=== PATIENT | female | born 1995 | race Caucasian/White ===

== ENCOUNTER 2018-06-22 01:14 | Emergency (ER) | payer OTHER ==
[2018-06-22 01:25] VITALS: TEMP 98.2
[2018-06-22 02:39] VITALS: RESP 16
[2018-06-22 03:05] VITALS: BP 94/64; PULSE 84; O2SAT 99
== END 2018-06-22 03:10 | disposition home or self-care (01) | DRG 552 ==
LOC: ED 01:14
DX: M54.9 Dorsalgia, unspecified (principal); V43.52XA Car driver injured in collision with other type car in traffic accident, initial encounter; Y92.410 Unspecified street and highway as the place of occurrence of the external cause; Y99.9 Unspecified external cause status; Z33.1 Pregnant state, incidental
CPT/HCPCS: 99282; 99284